=== PATIENT | male | born 1980 | race Caucasian/White ===

== ENCOUNTER 2021-04-25 15:17 | Emergency (ER) | payer MEDICAID, OTHER ==
[~2021-04-25] VITALS: Ht 172.7 cm; Wt 91.0 kg
[2021-04-25] MEDS ORDERED: BACITRACIN ZINC OINT UDPKT TOP ONE (16:00)
[2021-04-25] MEDS ORDERED: LIDOCAINE HCL/EPINEPHRINE 1%-EPI 1:100,000 20 ML VIAL INFIL ONE (16:00)
[2021-04-25] MEDS ORDERED: SULF1TAB48 MT (16:27)
[2021-04-25] MEDS ORDERED: ACET-2708 MT (16:27)
[2021-04-25] MEDS ORDERED: ACETAMINOPHEN 325MG TABLET PO ONE (16:30)
[2021-04-25] MEDS ORDERED: SULFAMETHOXAZOLE/TRIMETHOPRIM 800/160MG TABLET PO ONE (16:30)
[2021-04-25 16:51] VITALS: BP 126/83
== END 2021-04-25 16:53 | disposition home or self-care (01) ==
LOC: ER 15:17
DX: L02.811 Cutaneous abscess of head [any part, except face] (principal); Z98.890 Other specified postprocedural states
CPT/HCPCS: 99284; J3490

== ENCOUNTER 2021-05-13 16:53 | Emergency (ER) | payer BC ==
[~2021-05-13] VITALS: Ht 167.6 cm; Wt 84.0 kg
[~2021-05-13 16:53] MED LIST: ACET-2708 MT; SULF1TAB48 MT
[2021-05-13] MEDS ORDERED: KETOROLAC 30MG/ML VIAL IM ONE (23:00)
[2021-05-13] MEDS ORDERED: CYCLOBENZAPRINE 10MG TABLET PO ONE (23:00)
[2021-05-13] MEDS ORDERED: CYCL10TA7 MT (23:10)
[2021-05-13] MEDS ORDERED: NAPR-1176 MT (23:10)
[2021-05-14 01:03] VITALS: BP 115/66
== END 2021-05-14 01:11 | disposition home or self-care (01) ==
LOC: ER 16:53
DX: M25.511 Pain in right shoulder (principal); Z98.890 Other specified postprocedural states
CPT/HCPCS: 96372; 99283; J1885

== ENCOUNTER 2023-07-02 12:56 | Emergency (ER) | payer BC ==
[~2023-07-02] VITALS: Ht 157.5 cm; Wt 87.1 kg
[~2023-07-02 12:56] MED LIST changes: +CYCL10TA21 MT; +NAPR-1176 MT
[2023-07-02 13:17] VITALS: O2SAT 99
[2023-07-02] MEDS ORDERED: BACITRACIN ZINC OINT UDPKT TOP ONE (15:00)
[2023-07-02] MEDS ORDERED: TETANUS, DIPHTHERIA, PERTUSSIS VAC/PF 0.5ML (>10YR OLD) IM ONE ×2 (15:00→16:45)
[2023-07-02] MEDS ORDERED: LIDOCAINE HCL/PF 1% 10 MG/ML 5ML VIAL INFIL ONE (15:00)
[2023-07-02] MEDS ORDERED: KETOROLAC 60MG/2ML VIAL IM ONE (15:00)
[2023-07-02 15:31] LABS: BASOPHILS % 0.5 % (0.0-2.0); HEMATOCRIT. 43.4 % (42.0-52.0); HEMOGLOBIN. 14.4 g/dL (14.0-18.0); LYMPHOCYTES % 21.4 % (20.0-50.0); MEAN CORPUSCULAR HEMOGLOBIN 31.6 pg (28.0-32.0); MEAN CORPUSCULAR HGB CONC 33.2 g/dL (31.0-37.0); MEAN CORPUSCULAR VOLUME 95.1 fL (80.0-94.0); MEAN PLATELET VOLUME 9.3 fl (7.4-10.4); MONOCYTES % 7.9 % (2.0-8.0); NEUTROPHILS % 66.2 % (40.0-76.0); PLATELET 201 x1000/uL (130-400); RED BLOOD CELL COUNT 4.57 mill/uL (4.7-6.1); RED CELL DISTRIBUTION WIDTH 13.3 % (11.6-14.6); WHITE BLOOD COUNT 7.1 x1000/uL (4.5-11.0)
[2023-07-02 15:43] LABS: ALANINE AMINOTRANSFERASE 27 IU/L (10-49); ALBUMIN 4.4 g/dL (3.2-4.8); ASPARTATE AMINOTRANSFERASE 20 IU/L (<34); BILIRUBIN TOTAL 0.8 mg/dL (0.1-1.0); CALCIUM 9.1 mg/dL (8.7-10.4); CARBON DIOXIDE 28 mEq/L (21-32); CHLORIDE 105 mEq/L (98-107); CREATININE 0.8 mg/dL (0.6-1.3); GLUCOSE 96 mg/dL (70-105); PROTEIN TOTAL 7.7 g/dL (6.0-8.3); SODIUM 139 mEq/L (136-145); UREA NITROGEN BLOOD 7 mg/dL (9-23)
[2023-07-02] MEDS ORDERED: SULF1TAB48 MT (17:54)
[2023-07-02] MEDS ORDERED: CEPH500C2 MT (18:17)
[2023-07-02] MEDS ORDERED: PHEN51CR24 TP (18:17)
[2023-07-02] MEDS ORDERED: DOCU-150 MT (18:17)
[2023-07-02] MEDS ORDERED: POLY17PO3 MT (18:17)
[2023-07-02 19:37] VITALS: BP 136/78; PULSE 67; RESP 16; TEMP 98.2
== END 2023-07-02 19:38 | disposition home or self-care (01) ==
LOC: ER 12:56
DX: K61.0 Anal abscess (principal); Z90.49 Acquired absence of other specified parts of digestive tract
CPT/HCPCS: 80053; 85025; 36415; 74177; 90715; 10060; 90471; 96372; 99285; J1885; J3490; Z7610 ×3